=== PATIENT | female | born 2000 | race Hispanic/Latino ===

== ENCOUNTER 2024-05-02 10:24 | Emergency (ER) | payer SELFPAY ==
[~2024-05-02] VITALS: Ht 154.9 cm; Wt 73.9 kg
[2024-05-02 10:34] VITALS: PULSE 77; RESP 16; TEMP 98; O2SAT 98
== END 2024-05-02 11:02 | disposition home or self-care (01) ==
LOC: ER 10:32
DX: R20.2 Paresthesia of skin (principal)
CPT/HCPCS: 99282